=== PATIENT | male | born 1995 | race Caucasian/White ===

== ENCOUNTER 2019-10-15 02:53 | Emergency (ER) | payer OTHER ==
[~2019-10-15] VITALS: Ht 175.3 cm; Wt 86.0 kg
[2019-10-15] MEDS ORDERED: ONDANSETRON HCL 4MG/2ML INJ IV STA (04:19)
[2019-10-15] MEDS ORDERED: MORPHINE SULFATE 4 MG/ML CPJ (NOT FOR IM USE) IV STA (04:19)
[2019-10-15 04:54] LABS: BASOPHILS % 0.5 % (0.0-2.0); EOSINOPHILS % 0.6 % (0.0-5.0); HEMATOCRIT. 41.9 % (42.0-52.0); HEMOGLOBIN. 14.3 g/dL (14.0-18.0); LYMPHOCYTES % 11.8 % (20.0-50.0); MEAN CORPUSCULAR HEMOGLOBIN 31.3 pg (28.0-32.0); MEAN CORPUSCULAR VOLUME 91.7 fL (80.0-94.0); MONOCYTES % 8.3 % (2.0-8.0); NEUTROPHILS % 78.8 % (40.0-76.0); PLATELET 204 x1000/uL (130-400); RED BLOOD CELL COUNT 4.57 mill/uL (4.7-6.1); RED CELL DISTRIBUTION WIDTH 12.9 % (11.6-14.6)
[2019-10-15 05:05] LABS: CHLORIDE 108 mEq/L (98-107)
[2019-10-15] MEDS ORDERED: ONDANSETRON HCL 4MG/2ML INJ IV ONE (06:15)
[2019-10-15] MEDS ORDERED: MORPHINE SULFATE 4 MG/ML CPJ (NOT FOR IM USE) IV ONE (06:15)
[2019-10-15 09:01] VITALS: BP 120/70
[2019-10-15] MEDS ORDERED: IOHEXOL-300 100 ML BOTTLE ONE (10:16)
== END 2019-10-15 09:12 | disposition home or self-care (01) ==
LOC: ER 02:53
DX: S20.212A Contusion of left front wall of thorax, initial encounter (principal); S20.211A Contusion of right front wall of thorax, initial encounter; S30.811A Abrasion of abdominal wall, initial encounter; V49.50XA Passenger injured in collision with unspecified motor vehicles in traffic accident, initial encounter; Y93.89 Activity, other specified; Y92.410 Unspecified street and highway as the place of occurrence of the external cause; Z87.828 Personal history of other (healed) physical injury and trauma; F12.90 Cannabis use, unspecified, uncomplicated; N28.1 Cyst of kidney, acquired
CPT/HCPCS: 36415; 71045; 74177; 80048; 85025; 96374; 96375; 99284; J2270; J2405; Q9967